=== PATIENT | female | born 1960 | race Two or more races ===

== ENCOUNTER 2020-03-21 13:54 | Outpatient (CLI) | payer BC, OTHER ==
[~2020-03-21 13:54] MED LIST: METO25TA6 PO
== END 2020-03-21 23:59 | disposition home or self-care (01) ==
LOC: RAD 13:54
DX: S82.491D Other fracture of shaft of right fibula, subsequent encounter for closed fracture with routine healing (principal); M77.31 Calcaneal spur, right foot; M20.11 Hallux valgus (acquired), right foot; M21.611 Bunion of right foot; X58.XXXD Exposure to other specified factors, subsequent encounter
CPT/HCPCS: 73600; 73620

== ENCOUNTER 2020-08-27 06:47 | Outpatient (CLI) | payer BC, OTHER ==
[2020-08-27 07:28] LABS: BASOPHILS % (AUTO) 0.4 % (0.0-2.0); EOSINOPHILS # (AUTO) 0.2 K/uL (0.0-0.7); EOSINOPHILS % (AUTO) 2.6 % (0.0-7.0); HEMATOCRIT 39.8 % (31.2-41.9); HEMOGLOBIN 13.1 g/dL (10.9-14.3); LYMPHOCYTES # (AUTO) 3.2 K/uL (20.0-40.0); LYMPHOCYTES % (AUTO) 44.6 % (20.5-51.5); MEAN CORPUSCULAR HEMOGLOBIN 28.8 uug (24.7-32.8); MEAN CORPUSCULAR HGB CONC 33 g/dL (32.3-35.6); MEAN CORPUSCULAR VOLUME 87.5 fL (75.5-95.3); MONOCYTES # (AUTO) 0.5 K/uL (2.0-10.0); MONOCYTES % (AUTO) 7.5 % (0.0-11.0); NEUTROPHILS # (AUTO) 3.2 K/uL (1.8-8.9); NEUTROPHILS % (AUTO) 44.9 % (38.5-71.5); PLATELET COUNT (AUTO) 284 K/uL (179-408); RED BLOOD CELL COUNT(AUTO) 4.54 MIL/uL (3.63-4.92); WHITE BLOOD COUNT (AUTO) 7.2 K/uL (3.8-11.8)
[2020-08-27 07:30] LABS: *BILIRUBIN,URIN NEGATIVE (NEGATIVE); *BLOOD, URINE NEGATIVE (NEGATIVE); *CLARITY,URINE CLEAR (CLEAR); *COLOR,URINE YELLOW (YELLOW); *KETONES,URINE NEGATIVE (NEGATIVE); *UROBILINOGEN,URINE 0.2 E.U./dl (NORMAL); LEUKOCYTE ESTERASE ,URINE 1+ (NEGATIVE); NITRITE, URINE NEGATIVE (NEGATIVE); UGLUCOSE NEGATIVE (NEGATIVE)
[2020-08-27 07:39] LABS: BILIRUBIN,TOTAL 0.6 mg/dL (0.2-1.0); CREATININE 0.7 mg/dL (0.6-1.3); POTASSIUM 4.2 mmol/L (3.5-5.1); TOTAL PROTEIN, SERUM 7.2 g/dL (6.4-8.2)
[2020-08-27 07:43] LABS: BACTERIA,URINE NONE SEEN /HPF (NONE SEEN); MUCUS,URINE FEW /LPF (0-FEW); RBC,URINE 0-3 /HPF (0-3); SQUAMOUS EPITHELIAL CELL,UR MODERATE /HPF (NONE SEEN); URINE AMORPHOUS URATE FEW /HPF
== END 2020-08-27 23:59 | disposition home or self-care (01) ==
LOC: LAB 06:47
PROVIDERS: ATTEND Family Medicine
DX: E55.9 Vitamin D deficiency, unspecified (principal); Z00.01 Encounter for general adult medical examination with abnormal findings
CPT/HCPCS: 36415; 82306; 85025; 87086

== ENCOUNTER 2020-12-18 14:29 | Outpatient (CLI) | payer BC, OTHER | END 2020-12-18 23:59 | disposition home or self-care (01) | LOC: LAB 14:29 | PROVIDERS: ATTEND Family Medicine | DX: M17.12 Unilateral primary osteoarthritis, left knee (principal); M25.462 Effusion, left knee; M25.78 Osteophyte, vertebrae | CPT/HCPCS: 36415; 73562; 84443 ==

== ENCOUNTER 2021-03-19 09:14 | Outpatient (CLI) | payer BC, OTHER | END 2021-03-19 23:59 | disposition home or self-care (01) | LOC: US 09:14 | PROVIDERS: ATTEND Family Medicine | DX: K76.89 Other specified diseases of liver (principal); R31.9 Hematuria, unspecified; Z90.49 Acquired absence of other specified parts of digestive tract | CPT/HCPCS: 76700 ==

== ENCOUNTER 2021-08-26 12:01 | Emergency (ER) | payer BC, OTHER ==
[~2021-08-26] VITALS: Ht 152.4 cm; Wt 72.6 kg
--- NOTE | 2021-08-26 12:15 | NUR ---
at bedside to examine pt.
[2021-08-26 12:35] LABS: HEMATOCRIT 39.3 % (31.2-41.9); MEAN CORPUSCULAR HEMOGLOBIN 29.2 uug (24.7-32.8); MEAN CORPUSCULAR VOLUME 87.1 fL (75.5-95.3); PLATELET COUNT (AUTO) 310 K/uL (179-408)
[2021-08-26 12:39] LABS: CREATININE 0.7 mg/dL (0.6-1.3); POTASSIUM 4.2 mmol/L (3.5-5.1)
[2021-08-26] MEDS ORDERED: TONOPEN 1 EA EA MC ONE (12:45)
[2021-08-26] MEDS ORDERED: TETRACAINE HCL 0.5% OPHT DROP 2 ML BOTTLE OP ONE (12:45)
[2021-08-26] MEDS ORDERED: TETRACAINE HCL 0.5% OPHT DROP 2 ML BOTTLE ONE (12:53)
[2021-08-26] MEDS ORDERED: FLUORESCEIN SODIUM 1 MG STRIP OP ONE (13:15)
[2021-08-26] MEDS ORDERED: FLUORESCEIN SODIUM 1 MG STRIP ONE (13:22)
--- NOTE | 2021-08-26 13:32 | NUR ---
dcd instructions given to pt. as well as a list of referals to follow up with ophtalmologist. pt. also provided with an excuse to work. Left ER ambulatory in no distress.
== END 2021-08-26 13:34 | disposition home or self-care (01) ==
LOC: ER 12:01
DX: H02.843 Edema of right eye, unspecified eyelid (principal); E78.5 Hyperlipidemia, unspecified; Z79.899 Other long term (current) drug therapy; E11.9 Type 2 diabetes mellitus without complications
CPT/HCPCS: 36415; 85025; 86140; A4663

== ENCOUNTER 2022-03-25 11:50 | Outpatient (CLI) | payer BC, OTHER | END 2022-03-25 23:59 | disposition home or self-care (01) | LOC: LAB 11:50 | PROVIDERS: ATTEND Family Medicine | DX: R31.9 Hematuria, unspecified (principal) | CPT/HCPCS: 87086 ==

== ENCOUNTER 2024-04-04 11:41 | Emergency (ER) | payer BC, OTHER ==
[~2024-04-04] VITALS: Ht 162.6 cm; Wt 63.5 kg
[2024-04-04 13:06] VITALS: BP 148/83; O2SAT 98
== END 2024-04-04 13:07 | disposition home or self-care (01) ==
LOC: ER 11:41
DX: S67.191A Crushing injury of left index finger, initial encounter (principal); E11.9 Type 2 diabetes mellitus without complications; E78.5 Hyperlipidemia, unspecified; Z79.899 Other long term (current) drug therapy; Z88.7 Allergy status to serum and vaccine; W23.0XXA Caught, crushed, jammed, or pinched between moving objects, initial encounter; Y93.89 Activity, other specified; Y92.89 Other specified places as the place of occurrence of the external cause; Y99.8 Other external cause status
CPT/HCPCS: 73140; A4606; A4663